=== PATIENT | male | born 1960 ===

== ENCOUNTER → 2024-12-07 | Outpatient (CLI) | payer OTHER, SELFPAY ==
--- NOTE | 2024-12-07 11:48 | DI.RAD.S_ITS ---
PROCEDURE: XR ANKLE RT MIN 3V INDICATIONS: Right ankle pain/swelling 1 month TECHNIQUE: 3 views of the ankle were acquired. COMPARISON: CR, XR ANKLE 1 OR 2 VIEWS WEIGHT BEARING RIGHT, 07/10/2018, 10:00. FINDINGS: Bones: Significant arthritic changes present at the tibiotalar joint space. Subchondral sclerosis periarticular osteophytes are present. There is subluxation at the tibiotalar joint space with mild flattening of the superior talus. Soft tissues: No tibiotalar joint effusion. Achilles tendon appears normal. IMPRESSION: Extensive arthritic changes with mild talar flattening and tibiotalar subluxation as above. Overall appearance is progressive compared to prior exam. Dictated by: Maria Luisa Sweeney M.D. on 12/07/2024 at 14:13 Approved by: Maria Luisa Sweeney M.D. on 12/07/2024 at 14:15
== END ==
LOC: RAD 11:47
PROVIDERS: Referring Provider Nurse Practitioner Family; Visit Provider Nurse Practitioner Family
DX: S93.01XA Subluxation of right ankle joint, initial encounter (principal); M25.571 Pain in right ankle and joints of right foot
CPT/HCPCS: 73610

== ENCOUNTER → 2025-02-05 09:28 | Outpatient (CLI) | payer OTHER, SELFPAY ==
[2025-02-05 10:01] LABS: Hemoglobin 14.7 g/dL (13.5-17.5); Mean Corpuscular HGB Conc 34.3 % (30-36); Mean Corpuscular Hemoglobin 30.5 PG (26-34); Platelet Count 261 X10^3/uL (150-400); Red Blood Cell Count 4.83 X10^6/uL (4.5-5.9); Red Cell Distribution Width 13.9 % (11.6-14.8); White Blood Cell Count 5.2 X10^3/uL (4.5-11.0)
[2025-02-05 10:10] LABS: Hemoglobin A1C% w Est Avg Glu 5.8 % (4.0-6.0)
[2025-02-05 10:19] LABS: Erythrocyte Sedimentation Rate 6 MM/HR (0-15); HEMOLYSIS < 15 (0-50); Iron 90 ug/dL (49-181)
[2025-02-05 10:24] LABS: Alanine Aminotransferase 26 IU/L (<50); Albumin 4.3 g/dL (3.5-5.0); Albumin Globulin Ratio 1.7 (1.0-2.8); Alkaline Phosphatase 80 U/L (38-126); Aspartate Aminotransferase 26 IU/L (17-59); Bilirubin Total 0.5 mg/dL (0.2-1.3); Blood Urea Nitrogen 18 mg/dL (9-20); Calcium 9.2 mg/dL (8.4-10.2); Carbon Dioxide 23 mmol/L (22-32); Chloride 109 mmol/L (98-107); Cholesterol 241 mg/dL (140-199); Estimated Glomerular Filt Rate > 60 mL/min (>60); Globulin 2.6 g/dL (1.7-4.1); Glucose 107 mg/dL (70-99); HDL Cholesterol 43 mg/dL (40-60); HEMOLYSIS < 15 (0-50); LDL Cholesterol Calculated 158 mg/dL (<100); Potassium 4.4 mmol/L (3.4-5.1); Sodium 139 mmol/L (137-145); Total Protein 6.9 g/dL (6.3-8.2); Triglycerides 200 mg/dL (35-150)
[2025-02-05 10:33] LABS: Percent Iron Saturation 31 % (20-50); Total Iron Binding Capacity 289 ug/dL (261-462); Transferrin 238 mg/dL (206-381)
[2025-02-05 10:58] LABS: Ferritin 48 ng/mL (18-464)
[2025-02-05 11:10] LABS: HIV 1 & 2 Ab/Ag 4th Gen Combo NEGATIVE (NEGATIVE); Hep C Virus Ab w/Reflex Quant NEGATIVE s/c (NEGATIVE)
[2025-02-05 11:13] LABS: Vitamin B12 Reflex MMA if <400 467 pg/mL (239-931)
[2025-02-08 11:39] LABS: ANA Screen, IFA Negative (.)
[2025-02-09 13:12] LABS: Albumin 3.8 g/dL (2.9-4.4); Alpha 1 Globulin 0.2 g/dL (0.0-0.4); Alpha 2 Globulin 0.7 g/dL (0.4-1.0); Gamma Globulin 1.1 g/dL (0.4-1.8); Protein, Total 6.8 g/dL (6.0-8.5)
[2025-02-09 14:08] LABS: Alpha-1 Globulin, Ur 5.9 % (.); Beta Globulin, Ur 29.6 % (.); Gamma Globulin, Ur 31.4 % (.); M-Spike % Not Observed % (Not Observed); Urine Total Protein 6.6 mg/dL (Not Estab.)
== END ==
PROVIDERS: PCP Family Medicine; Referring Provider Family Medicine; Visit Provider Family Medicine
DX: G57.93 Unspecified mononeuropathy of bilateral lower limbs (principal); Z13.9 Encounter for screening, unspecified; E87.8 Other disorders of electrolyte and fluid balance, not elsewhere classified; Z11.59 Encounter for screening for other viral diseases; Z11.4 Encounter for screening for human immunodeficiency virus [HIV]; Z13.220 Encounter for screening for lipoid disorders; Z13.1 Encounter for screening for diabetes mellitus
CPT/HCPCS: 36415; 80053; 80061; 82607; 82728; 83036; 83540; 83550; 84155; 84156; 84165; 84166; 84443; 85027; 85651; 86038; 86140; 86803; 87389

== ENCOUNTER → 2025-08-24 12:02 | Outpatient (CLI) | payer OTHER, SELFPAY | PROVIDERS: PCP Family Medicine; Referring Provider Family Medicine; Visit Provider Family Medicine | DX: Z12.11 Encounter for screening for malignant neoplasm of colon (principal) | CPT/HCPCS: 82274 ==